=== PATIENT | female | born 2000 | race Caucasian/White ===

== ENCOUNTER 2023-07-31 04:34 | Emergency (ER) | payer OTHER, SELFPAY ==
[2023-07-31 04:45] VITALS: BP 132/75; PULSE 82; RESP 16; TEMP 36.6; O2SAT 98; BMI 20.4
[2023-07-31 05:06] LABS: Basophils Absolute Auto 0.1 X10*3/uL (0.0-0.2); Basophils Percent Auto 0.5 % (0-2); Eosinophils Absolute Auto 0.1 X10*3/uL (0.0-0.4); Eosinophils Percent Auto 0.5 % (0-4); Hematocrit 37.6 % (37.0-47.0); Hemoglobin 12.4 g/dl (12.0-16.0); Imm Gran Abs Auto 0.02 X10*3/uL (0.00-0.03); Imm Gran Pct Auto 0.2 % (0.0-0.4); Lymphocytes Absolute Auto 1.7 X10*3/uL (1.2-4.9); Lymphocytes Percent Auto 18.6 % (20-40); MANUAL DIFF FLAG NO; Mean Corpuscular Hemoglobin 25.9 pg (27.0-33.0); Mean Corpuscular Volume 78.7 fL (80.0-98.0); Mean Platelet Volume 11.6 fL (9.4-12.3); Monocytes Absolute Auto 0.7 X10*3/uL (0.1-1.2); Neutrophils Absolute Auto 6.6 x10*3/uL (2.0-8.3); Neutrophils Percent Auto 72.2 % (45-73); Platelet Count 208 X10*3/uL (160-400); Red Blood Count 4.78 X10*6/uL (4.20-5.50); Red Cell Distribution Width 13.2 % (11.0-16.0); White Blood Count 9.1 X10*3/uL (4.8-10.8)
[2023-07-31] MEDS: 0.9 % Sodium Chloride 1,000 ML 999 ML IV ×2 (05:07→05:54)
[2023-07-31] MEDS: ondansetron HCL 4 MG/2 ML VIAL IVPUSH (05:07)
--- NOTE | 2023-07-31 05:09 | PC.NURSE ---
pt from home a&ox4, respirations even and unlabored. pt reporting 3 days of nausea, vomiting and diarrhea. pt reports episodes of fever. pt reports she may have had contact with someone with the flu. pt given zofran in triage. pt reports the inability to keep any fluids and food down for those 3 days. pt denies abd pain and chest pain. 20G placed in the left forearm, labs drawn and sent to lab.
[2023-07-31 05:20] LABS: COVID-19 Test Negative (Negative); IDNOW Serial# 152EDE1D
[2023-07-31 05:24] LABS: IDNOW Serial# 08D9AD1C; Influenza A Negative (Negative); Influenza B2 Negative (Negative)
[2023-07-31 05:26] LABS: Alanine Aminotransferase 17 U/L (0-31); Alkaline Phosphatase 60 U/L (39-117); Anion Gap 20 (12-20); Aspartate Amino Transferase 29 U/L (5-31); Bilirubin Total 0.4 mg/dL (0.0-1.0); Blood Urea Nitrogen 13 mg/dL (9-16); Calcium 9.2 mg/dL (8.4-10.2); Carbon Dioxide 16 mmol/L (22-29); Chloride 107 mmol/L (96-108); Creatinine Clr Calc Pharmacy 68.2; Estimated Glomerular Filt Rate > 60; Glucose Random 86 mg/dL (60-115); Lipase 20 U/L (8-78); Potassium 4.2 mmol/L (3.3-5.1); Sodium 139 mmol/L (135-145); Total Protein 8.4 g/dL (6.5-8.0)
--- NOTE | 2023-07-31 05:29 | ED.NAVMDI ---
HPI - Nausea/Vomiting/Diarrhea General Chief complaint: Nausea/Vomiting/Diarrhea Stated complaint: dehydrated 4 days Time Seen by Provider: 07/31/23 05:29 Source: patient Mode of arrival: ambulatory Limitations: no limitations History of Present Illness HPI Narrative: Patient was healthy been having nausea vomiting diarrhea for last 4 days unable to eat solids or liquids at multiple times watery vomitus also does have cough and nasal congestion body aches low-grade fever chills no urinary complaints diffuse abdominal pain no other family member sick no recent travel no seafood intake Related Data Previous Rx's Medication Instructions Recorded dicyclomine 20 mg tablet 20 mg PO QID PRN abdominal pain 07/31/23 #12 tabs ondansetron 4 mg disintegrating 4 mg PO Q6-8H PRN nausea and 07/31/23 tablet vomiting #10 tabs Allergies Allergy/AdvReac Type Severity Reaction Status Date / Time No Known Allergies Allergy Unverified 09/24/22 09:52 [No Known Allergies*] Review of Systems Review of Systems: Yes all other systems are reviewed and are negative [facility] Social History Social History Smoked in Last 30 Days: Yes Use of substances other than those prescribed or required for medical reasons: Yes Substance Use Type: Marijuana Substance Use Frequency: Occasionally Advance Directives: No Advance Directives Information Provided: Yes Patient : No Physical Exam Vital Signs: Vital Signs: Last Vital Signs Temp 98 F 07/31/23 04:45 Pulse 82 07/31/23 04:45 Resp 16 07/31/23 04:45 BP 132/75 07/31/23 04:45 Pulse Ox 98 07/31/23 04:45 O2 Del Method Room Air 07/31/23 04:45 BMI result Body Mass Index 20.4 Appearance: Alert. Oriented X3. No acute distress. Eyes: No pallor or icterus ENT: Pharynx normal. Oral Mucosa moist Neck: Normal inspection. Neck supple. CVS: Normal heart rate and rhythm. Pulses normal. Respiratory: No respiratory distress. Equal air entry bilateral, no wheezing/rales/rhonchi Abdomen: Soft , diffuse tenderness no rebound tenderness or guarding. Bowel sounds are present, no mass palpable, no CVA tenderness Skin: Skin warm and dry. Normal skin color. Normal skin turgor. Extremities: No lower extremity edema. No calf tenderness Neuro: Oriented X 3. Medications Administered Discontinued Medications Generic Name Dose Route Start Last Admin Trade Name Freq PRN Reason Stop Dose Admin Guaifenesin/Codeine Phosphate 10 ml 07/31/23 05:39 07/31/23 05:55 Guaifen/Codeine Sf 200/20/10ml 10 Ml Liquid PO 07/31/23 05:40 10 ml ONCE ONE Administration Sodium Chloride 1,000 mls @ 999 mls/hr 07/31/23 05:15 07/31/23 06:18 Ns IV 07/31/23 06:15 Infused .Q1H1M NEMESIO Infusion Sodium Chloride 1,000 mls @ 999 mls/hr 07/31/23 05:39 07/31/23 05:54 Ns IV 07/31/23 06:39 999 mls/hr .Q1H1M ONE Administration Ketorolac Tromethamine 30 mg 07/31/23 05:40 07/31/23 05:55 Ketorolac Tromethamine 30 Mg/Ml Vial IVPUSH 07/31/23 05:41 30 mg ONCE ONE Administration Ondansetron HCl 4 mg 07/31/23 05:03 07/31/23 05:07 Ondansetron Hcl 4 Mg/2 Ml Vial IVPUSH 07/31/23 05:04 4 mg ONCE ONE Administration Medical Decision Making Medical Decision Making [facility] Narrative: Patient with acute gastroenteritis likely viral feeling much better after IV fluids able to take p.o. fluids, will discharge patient home on nausea medication Differential Diagnosis Differential Diagnoses: The differential diagnosis associated with the presentation includes Viral gastroenteritis/DKA/food poisoning Lab Data [facility] Lab Attestation statement: I reviewed the patient's lab results. 07/31/23 05:00 07/31/23 05:00 Labs: Lab Results 07/31/23 Range/Units 05:00 WBC 9.1 (4.8-10.8) X10*3/uL RBC 4.78 (4.20-5.50) X10*6/uL Hgb 12.4 (12.0-16.0) g/dl Hct 37.6 (37.0-47.0) % MCV 78.7 L (80.0-98.0) fL MCH 25.9 L (27.0-33.0) pg MCHC 33.0 (31.0-35.0) g/dl RDW 13.2 (11.0-16.0) % Plt Count 208 (160-400) X10*3/uL MPV 11.6 (9.4-12.3) fL Immature Gran % (Auto) 0.2 (0.0-0.4) % Neut % (Auto) 72.2 (45-73) % Lymph % (Auto) 18.6 L (20-40) % [place] % (Auto) 8.0 (2-11) % Eos % (Auto) 0.5 (0-4) % Baso % (Auto) 0.5 (0-2) % Lymph # (Auto) 1.7 (1.2-4.9) X10*3/uL [place] # (Auto) 0.7 (0.1-1.2) X10*3/uL Eos # (Auto) 0.1 (0.0-0.4) X10*3/uL Baso # (Auto) 0.1 (0.0-0.2) X10*3/uL Abs Immat Gran (auto) 0.02 (0.00-0.03) X10*3/uL Absolute Neuts (auto) 6.6 (2.0-8.3) x10*3/uL Absolute Nucleated RBC 0.000 (0.0-0.012) X10*3/uL Nucleated RBC % (auto) 0.0 (0.0-0.2) /100WBC Sodium 139 (135-145) mmol/L Potassium 4.2 (3.3-5.1) mmol/L Chloride 107 (96-108) mmol/L Carbon Dioxide 16 L (22-29) mmol/L Anion Gap 20 (12-20) BUN 13 (9-16) mg/dL Creatinine 0.86 (0.5-1.4) mg/dL Estim Creat Clear Calc 68.2 Estimated GFR > 60 Random Glucose 86 (60-115) mg/dL Calcium 9.2 (8.4-10.2) mg/dL Total Bilirubin 0.4 (0.0-1.0) mg/dL AST 29 (5-31) U/L ALT 17 (0-31) U/L Alkaline Phosphatase 60 (39-117) U/L Total Protein 8.4 H (6.5-8.0) g/dL Albumin 4.0 (3.5-5.0) g/dL Lipase 20 (8-78) U/L COVID-19 (LETTY) Negative (Negative) COVID-19 Clin Com See Note Influenza Type A (NIRAJ) Negative (Negative) Influenza Type B (NIRAJ) Negative (Negative) Influenza A & B Note See Note Discharge Plan Discharge Clinical Impression: Gastroenteritis Patient Disposition: Home, Self-Care Instructions: Gastroenteritis (ED) Additional Instructions: Drink plenty of fluids Medicine for vomiting and diarrhea as prescribed Follow with PCP as needed Prescriptions: New ondansetron 4 mg tablet,disintegrating 4 mg PO Q6-8H PRN (Reason: nausea and vomiting) Qty: 10 0RF dicyclomine 20 mg tablet 20 mg PO QID PRN (Reason: abdominal pain) Qty: 12 0RF
[2023-07-31] MEDS: guaiFEN/Codeine SF 200/20/10ML 10 ML LIQUID PO (05:55)
[2023-07-31] MEDS: Ketorolac Tromethamine 30 MG/ML VIAL IVPUSH (05:55)
--- NOTE | 2023-07-31 05:56 | PC.NURSE ---
pt medicated per mar at this time. pt tolerated well orally.
[2023-07-31 07:44] LABS: Appearance Urine Clear; Color Urine Yellow; Glucose Urine UA Negative (Negative); Leukocyte Esterase Urine Negative (Negative); Nitrite Urine Negative (Negative); PH 5.5 (5.0-9.0); Specific Gravity - Urine 1.025 (1.005-1.025); Urine Blood Negative (Negative); Urine Ketones >=160 mg/dL (Negative); Urine Protein Trace mg/dL (Neg-Trace)
[2023-07-31 07:48] LABS: UPreg QC Valid YES; Urine Pregnancy NEGATIVE (NEGATIVE)
[2023-07-31 08:26] VITALS: BP 101/61; PULSE 77; RESP 18; TEMP 36.6; O2SAT 98
== END 2023-07-31 08:54 | disposition home or self-care (01) ==
PROVIDERS: Emergency Provider Internal Medicine; PCP Pediatrics
DX: K52.9 Noninfective gastroenteritis and colitis, unspecified (principal); R11.2 Nausea with vomiting, unspecified; Z11.52 Encounter for screening for COVID-19
CPT/HCPCS: 80053; 81003; 81025; 83690; 85025; 87502; 87635; 96361; 96374; 96375; 99284; 99285; J1885; J2405

== ENCOUNTER 2025-06-13 08:19 | Emergency (ER) | payer SELFPAY ==
[2025-06-13 08:24] VITALS: BP 125/77; PULSE 118; RESP 20; TEMP 36.6; O2SAT 98; BMI 19.4
--- NOTE | 2025-06-13 08:33 | PC.NURSE ---
pt was unable to keep the zofran Po down, vomited right after
[2025-06-13 09:47] LABS: MANUAL DIFF FLAG NO
[2025-06-13 09:50] LABS: Hematocrit 38.9 % (37.0-47.0); Hemoglobin 13.0 g/dl (12.0-16.0); Imm Gran Abs Auto 0.01 X10*3/uL (0.00-0.03); Imm Gran Pct Auto 0.2 % (0.0-0.4); Lymphocytes Absolute Auto 0.9 X10*3/uL (1.2-4.9); Mean Corpuscular HGB Conc 33.4 g/dl (31.0-35.0); Mean Corpuscular Hemoglobin 26.8 pg (27.0-33.0); Mean Corpuscular Volume 80.2 fL (80.0-98.0); NRBC Abs Auto 0.000 X10*3/uL (0.0-0.012); NRBC Pct Auto 0.0 /100WBC (0.0-0.2); Platelet Count 171 X10*3/uL (160-400); Red Blood Count 4.85 X10*6/uL (4.20-5.50); White Blood Count 5.1 X10*3/uL (4.8-10.8)
[2025-06-13 09:56] LABS: IDNOW Serial# 55D5AD1C; Strep A Nucleic Acid Negative (Negative)
[2025-06-13 10:08] LABS: Alanine Aminotransferase 10 U/L (0-31); Albumin Level 4.4 g/dL (3.5-5.0); Alkaline Phosphatase 53 U/L (39-117); Anion Gap 15 (12-20); Aspartate Amino Transferase 21 U/L (5-31); Blood Urea Nitrogen 14 mg/dL (9-16); Calcium 9.3 mg/dL (8.4-10.2); Carbon Dioxide 21 mmol/L (22-29); Chloride 105 mmol/L (96-108); Creatinine Clr Calc Pharmacy 72.9; Estimated Glomerular Filt Rate > 60; Lipase 22 U/L (8-78); Potassium 4.2 mmol/L (3.3-5.1); Sodium 137 mmol/L (135-145); Total Protein 7.6 g/dL (6.5-8.0)
[2025-06-13 10:33] LABS: Resp Syncy Virus RNA Qual PCR NEGATIVE (Negative); SARS COV2 PCR INHOUSE NEGATIVE (Negative)
--- OUTSIDE RECORDS SUMMARY | 2025-06-13 10:48 | XMS_ITS | Clinical Summary ---
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 Active ibuprofen 200 mg capsule Take by mouth. Active Active Problems No known active problems Surgical History Surgery Date Site/Laterality Comments OTHER SURGICAL HISTORY PROCEDURE: DENIES PREVIOUS SURGERY Medical History Medical History Date Comments Patient denies medical problems DX:Patient denies medical problems Family History Medical History Relation Name Comments Diabetes Brother 1 No Known Problems Brother 2 No Known Problems Father No Known Problems Maternal Grandfather No Known Problems Maternal Grandmother Other: spina bifida Mother No Known Problems Paternal Grandfather No Known Problems Paternal Grandmother No Known Problems Sister 1 Relation Name Status Comments Brother 1 Brother 2 Alive Father Maternal Grandfather Maternal Grandmother Mother Paternal Grandfather Paternal Grandmother Sister 1 Sister 2 Alive Social History Tobacco Use Types Packs/Day Years Used Date Smoking Tobacco: Former Cigarettes 0.5 Q uit: 07/12/2019 Smokeless Tobacco: Never Alcohol Use Standard Drinks/Week Comments Never 0 (1 standard drink = 0.6 oz pur e alcohol) Comments No Sex and Gender Information Value Date Recorded Sex Assigned at Not on file Legal Sex Female 2:18 PM EST Gender Identity Not on file Sexual Orientation Not on file Obstetrics History * This document contains information received from the source organization and may not represent a complete record from that organization. Para Term AB IAB SAB Ectopic Multiple Livin g Live Births 2 1 1 1 1 Date Outcome GA Total Labor Labor/2nd/3rd Weight Sex Type Anes PTL Mere A1 A5 Name Clin 018 36w 0d Vag-S pont Living Complications:Rupture, membr anes, premature 025 Last Filed Vital Signs Vital Sign Reading Time Taken Comments Blood Pressure 99/52 09/13/2024 10:22 AM EST Pulse 79 09/13/2024 10:22 AM EST Temperature - - Respiratory Rate - - Oxygen Saturation - - Inhaled Oxygen Concentration - - Weight 44 kg (97 lb) 09/13/2024 10:22 AM EST Height 149.9 cm (4' 11 ) 06/01/2023 9:44 AM EST Body Mass Index 19.59 06/01/2023 9:44 AM EST Plan of Treatment Health Maintenance Due Date Last Done Comments DTaP,Tdap,and Td Vaccines (1 - Tdap) 2017 Hepatitis B Vaccines (1 of 3 - 19+ 3-dose series) 2017 Cervical Cancer Screening: P ap Smear 2019 HIV Screening 08/29/2022 Hepatitis C Screening 08/29/2022 Social Influencers of Health Screening 08/29/2022 Depression Screening 07/12/2024 COVID-19 Vaccine (1 - 2024-2 6 season) 2025 Influenza Vaccine (#1) 2025 HPV Vaccines (1 - 3-dose SCD M series) 2025 Cholesterol Screening (Lipid Panel) 05/03/2028 05/03/2023 RSV Immunization Adult Patie nts (1 - 1-dose 75+ series) 2073 HIB Vaccines Aged Out No longer eligi ble based on patient's age to complete this topic Hepatitis A Vaccines Aged Out No long er eligible based on patient's age to complete this topic IPV Vaccines Aged Out No longer eligi ble based on patient's age to complete this topic MMR Vaccines Aged Out No longer eligi ble based on patient's age to complete this topic Meningococcal ACWY Vaccine Aged Out N o longer eligible based on patient's age to complete this topic Meningococcal B Vaccine Aged Out No l onger eligible based on patient's age to complete this topic Pneumococcal Vaccine: Pediat rics (0 to 5 Years) and At-Risk Patients (6 to 49 Years) Aged Out No longer eligi ble based on patient's age to complete this topic RSV Immunization Patients Un cassandra 20 months Aged Out No longer eligible b ased on patient's age to complete this topic Varicella Vaccines Aged Out No longer eligible based on patient's age to complete this topic Procedures Procedure Name Priority Date/Time Associated Diagnosis Comments LIPID PANEL Routine 05/03/2023 from Last 3 Months or Most Recently Relevant to Health Maintenance Results * (ABNORMAL) Lipid panel (05/03/2023) LDL/HDL Ratio 3 0 - 4 Triglycerides 64 0 - 150 mg/dL Cholesterol 215(A) 0 - 200 mg/dL HDL 84 >=40 mg/dL LDL Cholesterol 119(A) 0 - 100 mg/dL Blood Venous blood specimen / Unknown us Historical Provider LAB BLOOD ORDERABLES Ariela l Result from Last 3 Months or Most Recently Relevant to Health Maintenance Care Teams 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
--- NOTE | 2025-06-13 11:46 | ED.GENADULT ---
HPI - General Adult General Chief complaint: Abdominal Pain Stated complaint: vomiting Time Seen by Provider: 06/13/25 11:48 Source: patient, RN notes reviewed and old records reviewed Mode of arrival: ambulatory Limitations: no limitations History of Present Illness ED Provider: Asuncion BELTRAN narrative: Patient is a 25 year old female presenting to the ED with 4 days of nausea, vomiting, diarrhea, sore throat, fever with tmax of 101, headaches and sinus pain. States boyfriend recently sick with similar symptoms but he did not have the nausea/vomiting. Denies chest pain or difficulty breathing. Epigastric abdominal pain. complaint: n/v/d, fever Onset (ago): day(s) Related Data Previous Rx's ?Medication ?Instructions ?Recorded dicyclomine 20 mg tablet 20 mg PO QID PRN abdominal pain 07/31/23 #12 tabs ondansetron 4 mg disintegrating 4 mg PO Q6-8H PRN nausea and 07/31/23 tablet vomiting #10 tabs ondansetron HCl 4 mg tablet 4 mg PO Q8H PRN nausea and 06/13/25 vomiting #10 tabs Allergies Allergy/AdvReac Type Severity Reaction Status Date / Time No Known Allergies (No Known Allergy Verified 06/13/25 08:27 Allergies*) Review of Systems Review of Systems: as per hpi Yes all other systems are reviewed and are negative Constitutional: Constitutional: Reports as per HPI [facility] Social History Social History Smoked in Last 30 Days: Yes Use of substances other than those prescribed or required for medical reasons: Yes Substance Use Type: Marijuana Advance Directives: No Advance Directives Information Provided: Yes Do you have a plan to hurt others: No Plan Physical Exam ED Vital Signs: Vital Signs - 24 hr 06/13/25 08:24 06/13/25 14:08 Temperature 97.8 F 98.3 F Pulse Rate 118 H 89 Respiratory Rate 20 Blood Pressure 125/77 96/53 L Pulse Oximetry 98 98 Oxygen Delivery Method Room Air Room Air BMI result Body Mass Index 19.4 Vital signs have been reviewed and appear to be correct. Blood pressure normal. Heart rate tachycardic. Respiratory rate normal. Temperature normal. Oxygen saturation normal. Const General: cooperative, healthy appearing and no acute distress Orientation/consciousness: oriented to person, oriented to place, oriented to time and patient oriented x3 Limitations: no limitations HENMT Head: Yes normocephalic and Yes atraumatic Ears: external ears normal and TM's normal bilaterally General nose exam: Normal external nose present and Normal nasal mucous membranes and turbinates present Face and sinus: Yes face symmetric Mouth: oropharynx normal, moist mucous membranes, no audible dysphonia, no drooling and no trismus Throat: Yes tonsils normal and Yes uvula midline Eyes Pupils: Equal, round and reactive pupils present Neck Neck: Yes normal visual inspection, Yes no lymphadenopathy and Yes supple Resp Effort & Inspection: normal respiratory effort and able to speak in complete sentences Auscultation: clear to auscultation bilaterally Cardio Rate: regular rate Rhythm: regular rhythm Heart sounds: S1 normal heart sound present and S2 normal heart sound present GI Palpation (GI): Soft to palpation and nontender Auscultation: normoactive bowel sounds General: Yes no CVA tenderness Back/Spine/Pelvis Back: no CVA tenderness Skin General skin exam: elasticity normal and turgor normal Neuro General: oriented to person, oriented to place, oriented to time, patient oriented x3, moves all extremities, no focal motor deficits and CN's II-XI intact bilaterally Cranial nerves: Yes Equal, round and reactive pupils present Cognition (Neuro): normal cognition Extrem General: Yes full ROM, Yes no pedal edema and Yes no calf tenderness Psych Mental Status: mental status grossly normal Affect: normal affect Thought process: Normal thought process present Course Reevaluation(s) Reevaluation #1: Notified by RN that when she went in to discharge patient she was vomiting again. Compazine ordered. Time: 14:25 Reevaluation #2: Patient complaining of generalized body aches, toradol ordered. Time: 15:00 Time: 16:23 Additional Reevaluation(s): Patient reports improvement in symptoms after 2nd liter of fluids and Toradol. Again feel patient is stable for discharge home at this time. Prescription for Zofran already sent to pharmacy. Medications Administered Discontinued Medications Generic Name Dose Route Start Last Admin Trade Name Freq PRN Reason Stop Dose Admin Sodium Chloride 1,000 mls @ 999 mls/hr 06/13/25 12:00 06/13/25 13:00 Ns IV 06/13/25 13:00 Infused .Q1H1M NEMESIO Infusion Lactated Ringer's 1,000 mls @ 999 mls/hr 06/13/25 15:15 06/13/25 15:27 Lr IV 06/13/25 16:15 999 mls/hr .Q1H1M NEMESIO Administration Ketorolac Tromethamine 15 mg 06/13/25 14:57 06/13/25 15:27 Ketorolac Tromethamine 15 Mg/Ml Vial IVPUSH 06/13/25 14:58 15 mg ONCE ONE Administration Ondansetron HCl 4 mg 06/13/25 08:29 06/13/25 08:31 Ondansetron Odt 4 Mg Tab.Rapdis TRANSLINGU 06/13/25 08:30 4 mg ONCE ONE Administration Ondansetron HCl 4 mg 06/13/25 11:48 06/13/25 11:56 Ondansetron Hcl 4 Mg/2 Ml Vial IVPUSH 06/13/25 11:49 4 mg ONCE ONE Administration Prochlorperazine Edisylate 10 mg 06/13/25 14:25 06/13/25 14:40 Prochlorperazine Edisylate 10 Mg/2 Ml Vial IVPUSH 06/13/25 14:26 10 mg ONCE ONE Administration Medical Decision Making Medical Decision Making MDM Narrative: Patient is a 25 year old female presenting to the ED with 4 days of nausea, vomiting, diarrhea, sore throat, fever with tmax of 101, headaches and sinus pain. On exam patient is awake, A+Ox3, VS WNL, afebrile, normal neurological exam without focal deficits, physical exam findings as above. Given reported symptoms and physical exam findings, initial differential includes but is not limited to Covid, flu, strep pharyngitis, other viral illness, gastroenteritis. Strep and viral swabs negative. Labs unremarkable. No abdominal tenderness, do not feel imaging is indicated. Will treat with IV fluids and antiemetics. Patient able to tolerate small sips of p.o. fluids after being medicated with Zofran. Feel stable for discharge home after IV fluids. Will send prescription for Zofran. Patient is specifically requesting tablets as opposed to ODT Zofran as she states that the taste made her vomit. Did discuss with patient that if she takes the tablet and vomits afterwards, she can not take another tablet for 8 hours. Patient verbalized understanding of this. Return precautions discussed at bedside. Patient verbalized understanding of and agreement with plan. Differential Diagnosis Differential Diagnoses: The differential diagnosis associated with the presentation includes As per [facility] Admission/Observation Consideration of admission/observation: Escalation of care including admission/observation considered Patient would have been admitted to the hospital and transferred to appropriate facility had their clinical presentation warranted hospital admission. Lab Data [facility] Lab Attestation statement: I reviewed the patient's lab results. as per [facility] 06/13/25 09:43 06/13/25 09:43 Labs: Lab Results 06/13/25 Range/Units 09:43 WBC 5.1 (4.8-10.8) X10*3/uL RBC 4.85 (4.20-5.50) X10*6/uL Hgb 13.0 (12.0-16.0) g/dl Hct 38.9 (37.0-47.0) % MCV 80.2 (80.0-98.0) fL MCH 26.8 L (27.0-33.0) pg MCHC 33.4 (31.0-35.0) g/dl RDW 12.8 (11.0-16.0) % Plt Count 171 (160-400) X10*3/uL MPV 11.6 (9.4-12.3) fL Immature Gran % (Auto) 0.2 (0.0-0.4) % Neut % (Auto) 71.2 (45-73) % Lymph % (Auto) 16.7 L (20-40) % [place] % (Auto) 10.5 (2-11) % Eos % (Auto) 0.8 (0-4) % Baso % (Auto) 0.6 (0-2) % Lymph # (Auto) 0.9 L (1.2-4.9) X10*3/uL [place] # (Auto) 0.5 (0.1-1.2) X10*3/uL Eos # (Auto) 0.0 (0.0-0.4) X10*3/uL Baso # (Auto) 0.0 (0.0-0.2) X10*3/uL Abs Immat Gran (auto) 0.01 (0.00-0.03) X10*3/uL Absolute Neuts (auto) 3.7 (2.0-8.3) x10*3/uL Absolute Nucleated RBC 0.000 (0.0-0.012) X10*3/uL Nucleated RBC % (auto) 0.0 (0.0-0.2) /100WBC Sodium 137 (135-145) mmol/L Potassium 4.2 (3.3-5.1) mmol/L Chloride 105 (96-108) mmol/L Carbon Dioxide 21 L (22-29) mmol/L Anion Gap 15 (12-20) BUN 14 (9-16) mg/dL Creatinine 0.79 (0.5-1.4) mg/dL Estim Creat Clear Calc 72.9 Estimated GFR > 60 Random Glucose 79 (60-115) mg/dL Calcium 9.3 (8.4-10.2) mg/dL Total Bilirubin 0.5 (0.0-1.0) mg/dL Direct Bilirubin 0.2 (0.0-0.5) mg/dL AST 21 (5-31) U/L ALT 10 (0-31) U/L Alkaline Phosphatase 53 (39-117) U/L Total Protein 7.6 (6.5-8.0) g/dL Albumin 4.4 (3.5-5.0) g/dL Lipase 22 (8-78) U/L Beta HCG, Quant < 2 mIU/mL Influenza Type A (PCR) NEGATIVE (Negative) Influenza Type B (PCR) NEGATIVE (Negative) RSV RNA Qual (PCR) NEGATIVE (Negative) SARS-CoV-2 RNA (RT-PCR) NEGATIVE (Negative) S. pyogenes GrpA NIRAJ Negative (Negative) External Record Review External record reviewed: Inpatient record, Office record and Outpatient record Prescription Management I considered prescription management with: Other Discharge Plan Discharge Clinical Impression: Acute viral syndrome Patient Disposition: Home, Self-Care Instructions: Viral Syndrome (ED) Additional Instructions: You were evaluated in the emergency department today for sore throat, body aches, fever, nausea, vomiting and diarrhea. You tested negative for Covid, flu, RSV, and strep throat. Your symptoms are likely due to another viral illness. Your labs were reassuring. You were given IV fluids and medication for nausea in the ED. You are being discharged with a prescription for ondansetron which you can take every 8 hours for nausea. Stick to a bland diet until your symptoms improve. Follow up with your primary care provider as needed. Return to the emergency department if you are unable to tolerate fluids by mouth, fever 100.4 F that does not improve with Tylenol/ibuprofen, severe abdominal pain, blood in your vomit or stool or any other new or concerning symptoms. Prescriptions: New ondansetron HCl 4 mg tablet 4 mg PO Q8H PRN (Reason: nausea and vomiting) Qty: 10 0RF No Action ondansetron 4 mg tablet,disintegrating 4 mg PO Q6-8H PRN (Reason: nausea and vomiting) Qty: 10 0RF dicyclomine 20 mg tablet 20 mg PO QID PRN (Reason: abdominal pain) Qty: 12 0RF Print Language: [place]
[2025-06-13 14:08] VITALS: BP 96/53; PULSE 89; TEMP 36.8; O2SAT 98
[2025-06-13] MEDS: Lactated Ringers 1,000 ML 999 ML IV (15:27)
[2025-06-13 16:42] VITALS: BP 104/55; PULSE 93; RESP 14; TEMP 36.8; O2SAT 97
== END 2025-06-13 16:44 | disposition home or self-care (01) ==
PROVIDERS: Registered Nurse Emergency; Emergency Provider Emergency Medicine; PCP Pediatrics
DX: B34.9 Viral infection, unspecified (principal); R10.9 Unspecified abdominal pain; J02.9 Acute pharyngitis, unspecified; R11.2 Nausea with vomiting, unspecified; R19.7 Diarrhea, unspecified; R50.9 Fever, unspecified; R51.9 Headache, unspecified; F17.210 Nicotine dependence, cigarettes, uncomplicated
CPT/HCPCS: 80048; 80076; 83690; 84702; 85025; 87637; 87651; 96361; 96374; 96375; 99284; J0737; J1885; J2405; J7120